=== PATIENT | female | born 1985 | race African-American/Black ===

== ENCOUNTER 2018-12-31 16:04 | Emergency (ER) | payer OTHER ==
[2018-12-31] MEDS ORDERED: ASPIRIN 81 MG TABLET, CHEWABLE PO ONE (16:32)
--- NOTE | 2018-12-31 16:35 | ER Document Report ---
ED Medical Screen (RME) - General Chief Complaint: Chest Pain Stated Complaint: CHEST PAIN Time Seen by Provider: 12/31/18 16:31 Mode of Arrival: Ambulatory Information source: Patient Notes: 33-year-old female presents to ED for complaint of chest pain since yesterday. She is short of breath. She states it is increasing pain with cough or movement of her right arm. She states she does have a history of pericarditis. She states last time she had the chest pain they told her that was not done well and sent home and then she came back in the ambulance and diagnosed with pericarditis. She states the pain is not getting any better. She states she is taken Tylenol and Motrin. She states she also has a history of asthma Graves' disease. States she had a and a groin mass removed and her last menstrual period was November 29. She states she does smoke 1 cigarette a day occasionally drinks and does occasionally use marijuana. Patient is alert and oriented respirations regular nonlabored at the time but she is tearful and very anxious. I have greeted and performed a rapid initial assessment of this patient. A comprehensive ED assessment and evaluation of the patient, analysis of test results and completion of medical decision making process will be conducted by an additional ED providers. TRAVEL OUTSIDE OF THE [place] IN LAST 30 DAYS: No - Related Data Allergies/Adverse Reactions: shellfish derived Allergy (Intermediate, Verified 12/31/18 16:23) mouth itching/swelling Past Medical History - Social History Chew tobacco use (# tins/day): No Frequency of alcohol use: Occasional Drug Abuse: Methamphetamine Physical Exam - Vital signs Vitals: Temp Pulse Resp BP Pulse Ox 98.2 F 118 H 20 124/76 100 12/31/18 16:20 12/31/18 16:20 12/31/18 16:20 12/31/18 16:20 12/31/18 16:20 Course - Vital Signs Vital signs: Temp Pulse Resp BP Pulse Ox 98.2 F 118 H 20 124/76 100 12/31/18 16:20 12/31/18 16:20 12/31/18 16:20 12/31/18 16:20 12/31/18 16:20
[2018-12-31 16:51] LABS: ABSOLUTE EOSINOPHILS # (AUTO) 0.1 10^3/uL (0.0-0.6); ABSOLUTE LYMPHOCYTES (AUTO) 2.1 10^3/uL (0.5-4.7); ABSOLUTE MONOCYTES (AUTO) 1.3 10^3/uL (0.1-1.4); ABSOLUTE NEUT (AUTO) 5.3 10^3/uL (1.7-8.2); BASOPHILS % (AUTO) 0.4 % (0-2); EOSINOPHILS % (AUTO) 0.6 % (0-6); HEMOGLOBIN 13.1 g/dL (12.0-15.5); LYMPHOCYTES % (AUTO) 23.8 % (13-45); MEAN CORPUSCULAR HEMOGLOBIN 28.2 pg (27.0-33.4); MEAN CORPUSCULAR HGB CONC 33.6 g/dL (32.0-36.0); MEAN CORPUSCULAR VOLUME 84 fl (80-97); MONOCYTES % (AUTO) 15.2 % (3-13); PLATELET COUNT 262 10^3/uL (150-450); RED BLOOD COUNT 4.65 10^6/uL (3.72-5.28); TOTAL CELLS COUNTED % (AUTO) 100 %; WHITE BLOOD COUNT 8.9 10^3/uL (4.0-10.5)
[2018-12-31 17:02] LABS: INTERNATIONAL RATION (INR) 1.07; PROTHROMBIN TIME 13.9 SEC (11.4-15.4)
[2018-12-31 17:03] LABS: PARTIAL THROMBOPLASTIN TIME 27.7 SEC (23.5-35.8)
[2018-12-31 17:07] LABS: ALBUMIN 4.1 g/dL (3.5-5.0); ALKALINE PHOSPHATASE 136 U/L (38-126); ANION GAP 9 (5-19); ASPARTATE AMINO TRANSFERASE 29 U/L (14-36); BILIRUBIN,TOTAL 0.5 mg/dL (0.2-1.3); BLOOD UREA NITROGEN 11 mg/dL (7-20); CALCIUM 9.7 mg/dL (8.4-10.2); CARBON DIOXIDE 26 mmol/L (22-30); CHLORIDE 106 mmol/L (98-107); CREATINE KINASE 77 U/L (30-135); GLUCOSE 103 mg/dL (75-110); POTASSIUM 3.9 mmol/L (3.6-5.0)
[2018-12-31 17:19] LABS: CREATINE KINASE MB 0.29 ng/mL (<4.55); NT PRO BNP 340 pg/mL (<125)
[2018-12-31 17:20] LABS: TROPONIN I < 0.012 ng/mL
[2018-12-31] MEDS ORDERED: NORMAL SALINE 1000 ML 1,000 ML IV ONE ×2 (17:22→20:55)
[2018-12-31] MEDS ORDERED: LORAZEPAM 0.5 MG TABLET PO ONE (18:03)
--- NOTE | 2018-12-31 18:05 | RADIOLOGY REPORT (SQ) ---
EXAM DESCRIPTION: CHEST 2 VIEWS COMPLETED DATE/TIME: 12/31/2018 5:29 pm REASON FOR STUDY: chest pain hx of pericarditis COMPARISON: None. EXAM PARAMETERS: NUMBER OF VIEWS: two views TECHNIQUE: Digital Frontal and Lateral radiographic views of the chest acquired. RADIATION DOSE: NA LIMITATIONS: none FINDINGS: LUNGS AND PLEURA: No consolidation, pneumothorax or pleural effusion. MEDIASTINUM AND HILAR STRUCTURES: No masses or contour abnormalities. HEART AND VASCULAR STRUCTURES: Heart normal size. No evidence for failure. BONES: No acute findings. HARDWARE: None in the chest. IMPRESSION: NO ACUTE RADIOGRAPHIC FINDING IN THE CHEST. TECHNICAL DOCUMENTATION: JOB ID: [id number] 2010 [employer]- All Rights Reserved Reading location - IP/workstation name: [email or web address]
[2018-12-31] MEDS ORDERED: METHIMAZOLE 5 MG TABLET PO ONE ×3 (18:45→23:58)
[2018-12-31] MEDS ORDERED: PROPRANOLOL HCL 10 MG TABLET PO ONE ×2 (18:45→22:39)
[2018-12-31 20:44] LABS: APPEARANCE,URINE SLIGHTLY-CLOUDY; BILIRUBIN,URINE NEGATIVE (NEGATIVE); COLOR,URINE YELLOW; GLUCOSE, URINE NEGATIVE (NEGATIVE); KETONES,URINE 20 mg/dL (NEGATIVE); LEUKOCYTE ESTERASE,URINE NEGATIVE (NEGATIVE); NITRITE,URINE NEGATIVE (NEGATIVE); PROTEIN,URINE 100 mg/dL (NEGATIVE); URINE SPECIFIC GRAVITY 1.027
[2018-12-31 21:00] LABS: URINE AMPHETAMINES SCREEN NEGATIVE; URINE BARBITURATES SCREEN NEGATIVE; URINE BENZODIAZEPINES SCREEN NEGATIVE; URINE COCAINE SCREEN NEGATIVE; URINE MARIJUANA (THC) SCREEN UNCONFIRMED POSITIVE; URINE METHADONE SCREEN NEGATIVE; URINE PHENCYCLIDINE SCREEN NEGATIVE
[2018-12-31] MEDS ORDERED: FENTANYL CITRATE INJ/PF 100 MCG/2 ML AMPUL IV ONE (21:16)
[2018-12-31] MEDS ORDERED: HYDROCORTISONE SOD SUCCINATE INJ/PF 100 MG/2 ML SDV IV ONE (22:37)
[2018-12-31] MEDS ORDERED: PROPRANOLOL HCL 20 MG TABLET PO ONE (22:38)
--- NOTE | 2018-12-31 22:42 | EKG REPORT ---
SEVERITY:- ABNORMAL ECG - SINUS TACHYCARDIA CONSIDER LEFT VENTRICULAR HYPERTROPHY ST ELEVATION SUGGESTS PERICARDITIS : Confirmed by: Natalie Vivas MD 31-Dec-2018 22:41:46
--- NOTE | 2018-12-31 22:58 | RADIOLOGY REPORT (SQ) ---
EXAM DESCRIPTION: CT CHEST ANGIOGRAPHY WITHOUT THEN WITH IV CONTRAST COMPLETED DATE/TME: 12/31/2018 18:45 CLINICAL HISTORY: 33 years Female pleuritic CP, evaluate for PE COMPARISON: None. TECHNIQUE: Contiguous axial images were obtained through the chest during the infusion of IV contrast. Reformatted images obtained. MIP reformatted images obtained. This exam was performed according to our department optimization program which includes automated exposure control, adjustment of the mA and/or kv according to patient size and/or use of iterative reconstruction technique. FINDINGS: Aorta is normal in caliber without dissection or rupture. No pericardial or pleural effusion. No evidence to suggest pulmonary embolus. No hilar or mediastinal adenopathy. Emphysematous changes in the upper lobes. No evidence of pulmonary infiltrate. No pneumothorax. IMPRESSION:No evidence of pulmonary embolus
[2018-12-31 23:12] LABS: FREE T4 (FREE THYROXINE) 6.45 ng/dL (0.78-2.19)
[2018-12-31 23:13] LABS: FREE T3 > 22.80 pg/mL (2.77-5.27)
[2019-01-01] MEDS ORDERED: METHIMAZOLE 5 MG TABLET PO ONE (00:05)
[2019-01-01 00:34] VITALS: BP 118/79
--- NOTE | 2019-01-01 02:12 | ER Document Report ---
Entered by GRETCHEN OSORIO SCRIBE 12/31/18 [id number] Acting as scribe for:RICHARD GUTIERREZ DO ED General - General Chief Complaint: Chest Pain Stated Complaint: CHEST PAIN Time Seen by Provider: 12/31/18 16:31 Primary Care Provider: HENRIQUE GILBERT MD [ACTIVE STAFF] - Follow up in 3-5 days MISTY RAMON MD [ACTIVE STAFF] - Follow up in 3-5 days Mode of Arrival: Ambulatory Information source: Patient Notes: Patient is a 33-year-old female who presents to the emergency department today with complaints of pain that radiates from her right shoulder to her left shoulder and diffusely across her anterior chest. Patient also states she feels short of breath. Patient states the pain and shortness of breath began yesterday. Patient states yesterday she drove from here to [place] and then back but she states that she had this pain prior to the drive. Patient has a history of pericarditis however she states today feels different. Patient states today the pain is a dull sensation across her chest but with pericarditis she had a sharp stabbing pain and she could "sometimes move without having pain". Patient states now when she moves she has pain all the time. Patient denies a personal or family history of DVT/PE, abdominal pain, or vomiting. Patient is anxious. Patient does admit to smoking marijuana but states she does not vape. TRAVEL OUTSIDE OF THE [place] IN LAST 30 DAYS: No - Related Data Allergies/Adverse Reactions: shellfish derived Allergy (Intermediate, Verified 12/31/18 16:23) mouth itching/swelling Past Medical History - General Information source: Patient - Social History Smoking Status: Current Every Day Smoker Cigarette use (# per day): Yes Chew tobacco use (# tins/day): No Frequency of alcohol use: Occasional Drug Abuse: Marijuana, Methamphetamine Lives with: Family Family History: Reviewed & Not Pertinent Patient has suicidal ideation: No Patient has homicidal ideation: No - Past Medical History Cardiac Medical History: Reports: Hx Hypertension, Other - Hx pericarditis Psychiatric Medical History: Reports: Hx Anxiety Surgical Hx: Negative Review of Systems - Review of Systems Constitutional: No symptoms reported EENT: No symptoms reported Cardiovascular: See HPI, Chest pain Respiratory: See HPI, Short of breath Gastrointestinal: denies: Abdominal pain, Nausea, Vomiting Genitourinary: No symptoms reported Female Genitourinary: No symptoms reported Musculoskeletal: No symptoms reported Skin: No symptoms reported Hematologic/Lymphatic: No symptoms reported Neurological/Psychological: See HPI, Anxiety -: Yes All other systems reviewed and negative Physical Exam - Vital signs Vitals: Temp Pulse Resp BP Pulse Ox 98.2 F 118 H 20 124/76 100 12/31/18 16:20 12/31/18 16:20 12/31/18 16:20 12/31/18 16:20 12/31/18 16:20 - Notes Notes: Physical Exam: General: Alert, appears anxious and uncomfortable. HEENT: Normocephalic. Atraumatic. PERRL. Extraocular movements intact. Oropharynx clear. Neck: Supple. Non-tender. Respiratory: No respiratory distress. Clear and equal breath sounds bilaterally. Cardiovascular: Tachycardic, regular rhythm. Abdominal: Normal Inspection. Non-tender. No distension. Normal Bowel Sounds. Back: No gross abnormalities. Extremities: Moves all four extremities. Upper extremities: Normal inspection. Normal ROM. Lower extremities: Normal inspection. No edema. Normal ROM. Neurological: Normal cognition. AAOx4. Normal speech. Psychological: Anxious Skin: Warm. Dry. Normal color. Course - Re-evaluation Re-evalutation: 01/01/19 01:09 Patient is a 33-year-old female with a history of hyperthyroidism who comes in tonight with tachycardia and very anxious. Patient is not taking her methimazole. States that she cannot find it/ran out a week ago. Only diagnosed with Graves' disease within the last few months. She does not have a doctor here as she recently moved. Patient has also not been taking propranolol. Patient was initially pacing around the room, very anxious and thinking that somebody is coming in the window. She was given Ativan and heart rate came down to 120s. Given methimazole and propranolol. Is feeling better. Discussed with the hospitalist service who does not feel that the patient meets admission requirement at this time. Patient has been medicated with propranolol methimazole. She would prefer to go home. She is to return immediately if she has any worsening or concerning symptoms. Chest pain has resolved. No acute findings on CTA. Stable for discharge. Follow-up with PMD and return if any further concerns. Understands and agrees with plan. - Vital Signs Vital signs: Temp Pulse Resp BP Pulse Ox 98.2 F 118 H 26 H 118/79 100 12/31/18 22:00 12/31/18 16:20 01/01/19 00:01 01/01/19 00:01 01/01/19 00:01 - Laboratory Result Diagrams: 12/31/18 16:40 12/31/18 16:40 Laboratory results interpreted by me: 12/31/18 12/31/18 12/31/18 16:40 16:40 16:40 [place] % (Auto) 15.2 H Creatinine 0.47 L Alkaline Phosphatase 136 H NT-Pro-B Natriuret Pep 340 H TSH Free T4 Free T3 pg/mL Urine Protein Urine Ketones Urine Urobilinogen 12/31/18 12/31/18 12/31/18 16:40 16:40 20:19 [place] % (Auto) Creatinine Alkaline Phosphatase NT-Pro-B Natriuret Pep TSH < 0.01 L Free T4 6.45 H Free T3 pg/mL > 22.80 H Urine Protein 100 H Urine Ketones 20 H Urine Urobilinogen 4.0 H Critical Care Note - Critical Care Note Total time excluding time spent on procedures (mins): 35 - Evaluation and management of thyrotoxicosis with multiple re-evaluations, counseling of patient Discharge - Discharge Clinical Impression: Thyrotoxicosis due to Graves' disease Condition: Stable Disposition: HOME, SELF-CARE Instructions: [facility], Hyperthyroidism ([facility], [facility]) Prescriptions: Propranolol HCl [Inderal 10 mg Tablet] 10 mg PO Q8 #36 tab Methimazole [Tapazole 5 mg Tablet] 5 mg PO TID #30 tablet Referrals: MISTY RAMON MD [ACTIVE STAFF] - Follow up in 3-5 days HENRIQUE GILBERT MD [ACTIVE STAFF] - Follow up in 3-5 days I personally performed the services described in the documentation, reviewed and edited the documentation which was dictated to the scribe in my presence, and it accurately records my words and actions.
== END 2019-01-01 00:50 | disposition home or self-care (01) ==
LOC: ER 16:04
DX: E05.80 Other thyrotoxicosis without thyrotoxic crisis or storm (principal); R07.9 Chest pain, unspecified; I10 Essential (primary) hypertension; F17.210 Nicotine dependence, cigarettes, uncomplicated; Z91.013 Allergy to seafood
CPT/HCPCS: 93005; 99291; 96361; 96374; 96375; 36415; 84439; 82553; 82550; 83735; 84443; 84703; 85025; 85610; 85730; 80053; 81001; 84484; 80307; 84481; 83880; 71046; 71275; 93010; J3010; J1720; J3490 ×2; J7030

== ENCOUNTER 2019-05-23 14:33 | Emergency (ER) | payer OTHER, MEDICAID ==
[2019-05-23 15:05] LABS: ABSOLUTE LYMPHOCYTES (AUTO) 1.5 10^3/uL (0.5-4.7); ABSOLUTE MONOCYTES (AUTO) 0.6 10^3/uL (0.1-1.4); ABSOLUTE NEUT (AUTO) 5.1 10^3/uL (1.7-8.2); BASOPHILS % (AUTO) 0.3 % (0-2); HEMATOCRIT 43.3 % (36.0-47.0); HEMOGLOBIN 15.1 g/dL (12.0-15.5); LYMPHOCYTES % (AUTO) 21.1 % (13-45); MEAN CORPUSCULAR HGB CONC 34.9 g/dL (32.0-36.0); MEAN CORPUSCULAR VOLUME 75 fl (80-97); MONOCYTES % (AUTO) 8.5 % (3-13); PLATELET COUNT 131 10^3/uL (150-450); RED BLOOD COUNT 5.82 10^6/uL (3.72-5.28); RED CELL DISTRIBUTION WIDTH 14.8 % (11.5-14.0); SEGMENTED NEUTROPHILS % (AUTO) 70.1 % (42-78); TOTAL CELLS COUNTED % (AUTO) 100 %; WHITE BLOOD COUNT 7.3 10^3/uL (4.0-10.5)
[2019-05-23] MEDS ORDERED: ONDANSETRON HCL INJ/PF 4 MG/2 ML SDV IV ONE (15:14)
[2019-05-23] MEDS ORDERED: NORMAL SALINE 1000 ML 1,000 ML IV ONE ×2 (15:14→15:25)
[2019-05-23] MEDS ORDERED: METHIMAZOLE 5 MG TABLET PO ONE (15:25)
[2019-05-23 15:26] LABS: ALKALINE PHOSPHATASE 145 U/L (38-126); ANION GAP 14 (5-19); ASPARTATE AMINO TRANSFERASE 45 U/L (14-36); BILIRUBIN,DIRECT 0.3 mg/dL (0.0-0.4); BILIRUBIN,TOTAL 0.4 mg/dL (0.2-1.3); BLOOD UREA NITROGEN 28 mg/dL (7-20); CALCIUM 8.6 mg/dL (8.4-10.2); CARBON DIOXIDE 23 mmol/L (22-30); CHLORIDE 96 mmol/L (98-107); CREATINE KINASE 241 U/L (30-135); GLUCOSE 115 mg/dL (75-110); POTASSIUM 3.9 mmol/L (3.6-5.0); TOTAL PROTEIN 8.2 g/dL (6.3-8.2)
[2019-05-23] MEDS ORDERED: METOPROLOL TARTRATE 25 MG TABLET PO ONE (15:26)
--- NOTE | 2019-05-23 15:30 | ER Document Report ---
ED General - General Chief Complaint: Weakness Stated Complaint: WEAKNESS Time Seen by Provider: 05/23/19 15:13 TRAVEL OUTSIDE OF THE [place] IN LAST 30 DAYS: No - HPI Notes: Patient is a 34-year-old female who presents to the emergency department for evaluation. For the last several days she has had low-grade fevers, cough, sore throat, body aches. She has had nausea but no emesis in the last 24 hours. She did have emesis in the beginning of her illness. She is still urinating. She states she has had heart palpitations and feels as if her heart is coming out of her chest. She has a history of hyperthyroidism. She supposed be taking methimazole and propanolol daily. She states she vomited them up on Tuesday and has not tried to take them again since. Her kids have all had similar illnesses in the last week or 2. - Related Data Allergies/Adverse Reactions: shellfish derived Allergy (Intermediate, Verified 05/23/19 16:58) mouth itching/swelling Home Medications: Methimazole, propanolol Past Medical History - General Information source: Patient - Social History Smoking Status: Current Every Day Smoker Family History: Reviewed & Not Pertinent, Thyroid Disfunction Pulmonary Medical History: Reports: Hx Asthma Endocrine Medical History: Reports: Hx Hyperthyroidism Psychiatric Medical History: Reports: Hx Anxiety Review of Systems - Review of Systems Constitutional: See HPI EENT: See HPI Cardiovascular: See HPI Respiratory: See HPI Gastrointestinal: See HPI Musculoskeletal: See HPI -: Yes All other systems reviewed and negative Physical Exam - Vital signs Vitals: Temp Resp BP Pulse Ox 100.5 F H 21 H 121/77 100 05/23/19 14:57 05/23/19 14:57 05/23/19 14:57 05/23/19 14:57 - Notes Notes: Vital signs reviewed, please refer to chart. Head is normocephalic, atraumatic. Pupils equal round, reactive to light. Oral mucosa is moist. Erythema is noted to the pharynx without exudate. Neck is supple without meningismus. Heart is tachycardic with normal S1-S2. Lungs are clear to auscultation bilaterally. Abdomen is soft, nontender, normoactive bowel sounds throughout. Extremities without cyanosis, clubbing. Posterior calves are nontender. Peripheral pulses are equal. Skin is warm and dry. Patient is awake, alert, neurological exam is nonfocal. Course - Re-evaluation Re-evalutation: 05/23/19 15:29 Patient presents to the emergency department for evaluation. She had laboratory investigations as ordered per protocol. She was given IV fluids, Zofran. My suspicion is that her tachycardia is in part secondary to withdrawal from propanolol. We do not have propanolol here in the facility, she is ordered metoprolol and methimazole orally after getting nausea medication. We will continue to monitor. 05/23/19 17:32 Patient's heart rate is improved to 101 at this time. Her respiratory rate is normalized. She is oxygenating normally. Her symptoms have been present for several days. I highly suspect influenza as the etiology, but I do not believe a test is warranted at this time. We will send her home with Zofran. I also explained to her the importance of taking her propanolol and methimazole as directed. She voiced understanding to this. Otherwise she is to treat her fever at home with Tylenol/Motrin. She is to follow-up with primary care this week, return to the ED with worsening or new concerning symptoms of any sort. - Vital Signs Vital signs: Temp Pulse Resp BP Pulse Ox 98.9 F 19 112/68 99 05/23/19 16:01 05/23/19 16:01 05/23/19 16:01 05/23/19 16:01 - Laboratory Result Diagrams: 05/23/19 14:55 05/23/19 14:55 Laboratory results interpreted by me: 05/23/19 05/23/19 14:55 14:55 RBC 5.82 H MCV 75 L MCH 26.0 L RDW 14.8 H Plt Count 131 L Sodium 133.3 L Chloride 96 L BUN 28 H Glucose 115 H AST 45 H Alkaline Phosphatase 145 H Creatine Kinase 241 H - EKG Interpretation by Me Additional EKG results interpreted by me: 05/23/19 17:33 Sinus tachycardia at the rate of 124 bpm. Normal axis and intervals. No acute ST changes concerning for ischemia or infarction. Discharge - Discharge Clinical Impression: Influenza Fever Qualifiers: Encounter type: initial encounter Nausea and vomiting Qualifiers: Vomiting type: unspecified Vomiting Intractability: non-intractable Qualified Code(s): R11.2 - Nausea with vomiting, unspecified Condition: Stable Disposition: HOME, SELF-CARE Instructions: Intravenous (IV) Fluids ([facility]), Vomiting ([facility]), Viral Syndrome ([facility]), Antinausea Medication ([facility]) Additional Instructions: Stay hydrated with small, frequent sips of fluids. Please be sure to resume your regular medications. Zofran as needed for nausea. Tylenol or ibuprofen as needed for fever. Follow-up with your primary care provider within the week. Return to the emergency department if you develop worsening or new concerning symptoms of any sort.
[2019-05-23 15:37] LABS: CREATINE KINASE MB 0.66 ng/mL (<4.55)
[2019-05-23 15:38] LABS: TROPONIN I < 0.012 ng/mL
[2019-05-23] MEDS ORDERED: KETOROLAC TROMETHAMINE INJ/PF 30 MG/1 ML SDV IV ONE (15:39)
[2019-05-23] MEDS ORDERED: ONDANSETRON ODT 4 MG TAB (6 TAB/ER DISP) PO PRN (17:31)
[2019-05-23 17:36] LABS: APPEARANCE,URINE CLOUDY; BILIRUBIN,URINE NEGATIVE (NEGATIVE); COLOR,URINE YELLOW; GLUCOSE, URINE NEGATIVE (NEGATIVE); KETONES,URINE TRACE mg/dL (NEGATIVE); LEUKOCYTE ESTERASE,URINE TRACE (NEGATIVE); NITRITE,URINE NEGATIVE (NEGATIVE); PROTEIN,URINE 100 mg/dL (NEGATIVE); URINE SPECIFIC GRAVITY 1.027; UROBILINOGEN,URINE NEGATIVE mg/dL (<2.0)
[2019-05-23 17:57] VITALS: BP 105/76
--- NOTE | 2019-05-23 18:21 | EKG REPORT ---
SEVERITY:- ABNORMAL ECG - SINUS TACHYCARDIA PROBABLE LEFT VENTRICULAR HYPERTROPHY NS ANTERIOR t CHANGES : Confirmed by: Natalie Vivas MD 23-May-2019 18:21:04
== END 2019-05-23 17:57 | disposition home or self-care (01) ==
LOC: ER 14:33
DX: J11.1 Influenza due to unidentified influenza virus with other respiratory manifestations (principal); R11.2 Nausea with vomiting, unspecified; R50.9 Fever, unspecified; R53.1 Weakness; R05 Cough; M79.10 Myalgia, unspecified site; R00.2 Palpitations; F17.200 Nicotine dependence, unspecified, uncomplicated; J45.909 Unspecified asthma, uncomplicated; Z79.899 Other long term (current) drug therapy
CPT/HCPCS: 93005; 99284; 96361; 96374; 36415; 82553; 82550; 85025; 80053; 81001; 84484; 93010; J1885; J2405; J7030

== ENCOUNTER → 2019-11-05 | Outpatient (CLI) | payer OTHER, MEDICAID ==
[2019-11-05 18:06] LABS: ABSOLUTE MONOCYTES (AUTO) 0.3 10^3/uL (0.1-1.4); EOSINOPHILS % (AUTO) 1.1 % (0-6); HEMOGLOBIN 12.5 g/dL (12.0-15.5); TOTAL CELLS COUNTED % (AUTO) 100 %
[2019-11-05 18:10] LABS: ABSOLUTE LYMPHOCYTES (AUTO) 2.2 10^3/uL (0.5-4.7); BASOPHILS % (AUTO) 0.6 % (0-2); LYMPHOCYTES % (AUTO) 48.5 % (13-45); MEAN CORPUSCULAR HEMOGLOBIN 27.5 pg (27.0-33.4); MEAN CORPUSCULAR HGB CONC 33.8 g/dL (32.0-36.0); MEAN CORPUSCULAR VOLUME 81 fl (80-97); MONOCYTES % (AUTO) 6.3 % (3-13); PLATELET COUNT 288 10^3/uL (150-450); RED BLOOD COUNT 4.56 10^6/uL (3.72-5.28); RED CELL DISTRIBUTION WIDTH 14.3 % (11.5-14.0); SEGMENTED NEUTROPHILS % (AUTO) 43.5 % (42-78); WHITE BLOOD COUNT 4.6 10^3/uL (4.0-10.5)
[2019-11-05 18:39] LABS: ALBUMIN 3.7 g/dL (3.5-5.0); ALKALINE PHOSPHATASE 90 U/L (38-126); ASPARTATE AMINO TRANSFERASE 20 U/L (14-36); BILIRUBIN,TOTAL 0.4 mg/dL (0.2-1.3); BLOOD UREA NITROGEN 7 mg/dL (7-20); CARBON DIOXIDE 27 mmol/L (22-30); CHLORIDE 106 mmol/L (98-107); GLUCOSE 90 mg/dL (75-110); POTASSIUM 3.8 mmol/L (3.6-5.0); TOTAL PROTEIN 7.2 g/dL (6.3-8.2)
[2019-11-05 18:41] LABS: ANION GAP 4 (5-19); C-REACTIVE PROTEIN < 5.0 mg/L (<10.0)
[2019-11-05 18:59] LABS: ERYTHROCYTE SEDIMENTATION RATE 30 mm/hr (0-20)
[2019-11-07 18:36] LABS: ANTICHROMATIN AB <0.2 AI (0.0-0.9); CENTROMERE B AB <0.2 AI (0.0-0.9); JO-1 ANTIBODY (ANACOMP) <0.2 AI (0.0-0.9); SJOGREN'S ANTI-SS-B AB <0.2 AI (0.0-0.9); SJOGREN'S SS-A ANTIBODY <0.2 AI (0.0-0.9)
[2019-11-07 19:15] LABS: DNA DOUBLE STRAND ANTIBODY ANA 1 IU/mL (0-9)
== END ==
LOC: OD 16:07
PROVIDERS: ATTEND Family Medicine
DX: E05.00 Thyrotoxicosis with diffuse goiter without thyrotoxic crisis or storm (principal); I30.0 Acute nonspecific idiopathic pericarditis
CPT/HCPCS: 36415; 80053; 84436; 84443; 84480; 85025; 85652; 86140; 86225; 86235; 86376; 86431